=== PATIENT | female | born 1945 | race Caucasian/White ===

== ENCOUNTER 2017-12-18 18:39 | Emergency (ER) | payer MEDICARE, OTHER ==
[2017-12-18 19:03] VITALS: BP 178/88
--- NOTE | 2017-12-18 19:16 | ED ---
Laceration/Wound HPI - HPI Summary HPI Summary: 72 yr old female with the complaint of head injury. She fell on some wet leaves against the car tire. no LOC. No neck pain. She is not on blood thinners. She has no headache, no focal deficits. She came in due to her scalp wound bleeding on left parietal scalp area. - History of Current Complaint Stated Complaint: S/P FALL HEAD INJURY Time Seen by Provider: 12/18/17 19:03 Hx Last Menstrual Period: age 52 Pain Intensity: 7 - Allergy/Home Medications Allergies/Adverse Reactions: Allergies Allergy/AdvReac Type Severity Reaction Status Date / Time No Known Allergies Allergy Verified 02/17/16 13:42 PMH/Surg Hx/FS Hx/Imm Hx Endocrine/Hematology History: Reports: Hx Thyroid Disease Denies: Hx Diabetes Cardiovascular History: Reports: Hx Hypertension Denies: Hx Pacemaker/ICD Respiratory History: Denies: Other Respiratory Problems/Disorders Sensory History: Denies: Hx Hearing Aid Psychiatric History: Denies: Hx Panic Disorder - Cancer History Cancer Type, 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 - Surgical History Surgery Procedure, Year, and Place: gastric bypass, bowel resection, b/l knee replacements, tubal ligation, t/a Infectious Disease History: Yes Infectious Disease History: Reports: Hx Shingles Denies: Traveled Outside the [place] in Last 30 Days - Family History Known Family History: Positive: None, Hypertension - Social History Occupation: Retired Lives: With Family Alcohol Use: Daily Alcohol Amount: few wine Substance Use Type: Reports: None Smoking Status (MU): Former Smoker Review of Systems Constitutional: Negative Eyes: Negative ENT: Negative Positive: Other - scalp laceration Neurological: Negative All Other Systems Reviewed And Are Negative: Yes Physical Exam Triage Information Reviewed: Yes Vital Signs On Initial Exam: Initial Vitals Temp Pulse Resp BP Pulse Ox 97.8 F 87 18 178/88 100 12/18/17 18:58 12/18/17 18:58 12/18/17 18:58 12/18/17 18:58 12/18/17 18:58 Vital Signs Reviewed: Yes Appearance: Positive: Well-Appearing, No Pain Distress Skin: Positive: Warm, Skin Color Reflects Adequate Perfusion Head/Face: Positive: Other - scalp laceration left parietal scalp with no active bleeding. 3 cm. Eyes: Positive: EOMI ENT: Positive: Normal ENT inspection, TMs normal Neck: Positive: Supple, Nontender Respiratory/Lung Sounds: Positive: Clear to Auscultation, Breath Sounds Present Cardiovascular: Positive: RRR Abdomen Description: Negative: Distended Musculoskeletal: Positive: Strength/ROM Intact Neurological: Positive: Sensory/Motor Intact, Alert, Oriented to Person Place, Time, CN Intact II-III, Normal Gait, Speech Normal Psychiatric: Positive: Normal - [place] Coma Scale Best Eye Response: 4 - Spontaneous Best Motor Response: 6 - Obeys Commands Best Verbal Response: 5 - Oriented Coma Scale Total: 15 Procedures - Laceration/Wound Repair 1 Location: head Description: Irregular Length, Depth and Shape: 3 cm Betadine Prep?: No Irrigated w/ Saline (ccs): 500 Laceration/Wound Explored: clean Closure: [place] #__ - 4 Layer Closure?: No Sterile Dressing Applied?: No Diagnostics - Vital Signs Vital Signs Temp Pulse Resp BP Pulse Ox 12/18/17 18:58 97.8 F 87 18 178/88 100 - Laboratory Lab Statement: Any lab studies that have been ordered have been reviewed, and results considered in the medical decision making process. Laceration Repair Course/Dx - Course Course Of Treatment: 72 yr old no LOC, scalp lac repaired. Normal neuro. DC home. Gridley out in 10 days. - Clinical Impression Provider Diagnoses: Scalp laceration Discharge - Sign-Out/Discharge Documenting (check all that apply): Patient Departure All imaging exams completed and their final reports reviewed: No Studies - Discharge Plan Condition: Good Disposition: HOME Patient Education Materials: Laceration (ED), Hypertension (ED) Referrals: No Primary Care Phys,NOPCP [Primary Care Provider] - [facility] REFERRAL [Outside] Additional Instructions: you miguelito need to be removed in 10 days. - Billing Disposition and Condition Condition: GOOD Disposition: Home
[2017-12-18] MEDS ORDERED: Tetan/Diph/Pertus SYR(Tdap)* 0.5 ML SYR(BOOSTRIX) use SYR IM ONE (19:28)
== END 2017-12-18 20:01 | disposition home or self-care (01) ==
LOC: UCCORT 18:39
DX: I10 Essential (primary) hypertension (principal); Z85.828 Personal history of other malignant neoplasm of skin; S01.01XA Laceration without foreign body of scalp, initial encounter; W01.198A Fall on same level from slipping, tripping and stumbling with subsequent striking against other object, initial encounter; Y92.9 Unspecified place or not applicable
CPT/HCPCS: 12002; 90715; 99211; G0463

== ENCOUNTER 2017-12-28 11:55 | Emergency (ER) | payer MEDICARE, OTHER ==
--- NOTE | 2017-12-28 13:26 | UC ---
Skin Complaint HPI - HPI Summary HPI Summary: 72 yo female presents for staple removal. She had 5 miguelito placed 10 days ago s /p head injury. She has been feeling well since that time. Reports that the site itches, but has not hurt, had any drainage or swelling. - History of Current Complaint Time Seen by Provider: 12/28/17 13:26 Stated Complaint: STAPLE REMOVED Hx Obtained From: Patient Hx Last Menstrual Period: age 52 - Allergy/Home Medications Allergies/Adverse Reactions: Allergies Allergy/AdvReac Type Severity Reaction Status Date / Time No Known Allergies Allergy Verified 12/28/17 13:32 Review of Systems Constitutional: Negative Skin: Other - 5 miguelito in scalp Respiratory: Negative Cardiovascular: Negative Gastrointestinal: Negative Neurological: Negative Psychological: Negative All Other Systems Reviewed And Are Negative: Yes PMH/Surg Hx/FS Hx/Imm Hx Endocrine History: Hypothyroidism Cardiovascular History: Hypertension GI/ History: Gastroesophageal Reflux - Surgical History Surgical History: Yes Surgery Procedure, Year, and Place: gastric bypass, bowel resection, b/l knee replacements, tubal ligation, t/a - Family History Known Family History: Positive: Hypertension - Social History Occupation: Retired Lives: With Family Alcohol Use: Daily Alcohol Amount: few wine Substance Use Type: None Smoking Status (MU): Former Smoker When Did the Patient Quit Smoking/Using Tobacco: 40+ years ago - Immunization History Most Recent Tetanus Shot: about 2009 Physical Exam - Summary Physical Exam Summary: GENERAL: NAD. WDWN. No pain distress. SKIN: [address] left scalp. Laceration well healed with copious scabbing. No drainage, erythema, or edema. NECK: Supple. Nontender. No lymphadenopathy. CHEST: No accessory muscle use. Breathing comfortably and in no distress. CV: Pulses intact. Cap refill <2seconds NEURO: Alert. PSYCH: Age appropriate behavior. Triage Information Reviewed: Yes Vital Signs: Vital Signs: Temp Pulse Resp BP Pulse Ox 98.6 F 84 16 144/73 100 12/28/17 13:27 12/28/17 13:27 12/28/17 13:27 12/28/17 13:27 12/28/17 13:27 Course/Dx - Course Course Of Treatment: 4 miguelito removed with ease. 5th and last staple was difficult to remove. I enlisted the help of Dr. Mendes and, using a curved hemostat and staple remover, was able to remove the final staple. Pt tolerated well. - Diagnoses Provider Diagnoses: Staple removal Discharge - Sign-Out/Discharge Documenting (check all that apply): Patient Departure All imaging exams completed and their final reports reviewed: No Studies - Discharge Plan Condition: Stable Disposition: HOME Referrals: Piter Felix DO [Primary Care Provider] - Additional Instructions: If you develop a fever, shortness of breath, chest pain, new or worsening symptoms - please call your PCP or go to the ED. - Billing Disposition and Condition Condition: STABLE Disposition: Home
[2017-12-28 13:32] VITALS: BP 144/73
== END 2017-12-28 14:02 | disposition home or self-care (01) ==
LOC: UCCORT 11:55
DX: Z48.02 Encounter for removal of sutures (principal); E03.9 Hypothyroidism, unspecified; I10 Essential (primary) hypertension; K21.9 Gastro-esophageal reflux disease without esophagitis; Z90.49 Acquired absence of other specified parts of digestive tract; Z98.84 Bariatric surgery status; Z87.891 Personal history of nicotine dependence; Z96.653 Presence of artificial knee joint, bilateral

== ENCOUNTER 2018-05-08 13:18 | Emergency (ER) | payer MEDICARE, OTHER ==
[2018-05-08 13:36] VITALS: BP 111/53
--- NOTE | 2018-05-08 13:49 | UC ---
Lower Extremity/Ankle HPI - HPI Summary HPI Summary: bilateral lower leg swelling / redness x 3 days swelling from toes to knees painful to walk, no known injury , no hx of DM denies any fever, no chest pain , no sob - History of Current Complaint Chief Complaint: UCLowerExtremity Stated Complaint: SWELLING, SKIN CONCERN & PAIN BOTH FEET AND LEGS Time Seen by Provider: 05/08/18 13:28 Hx Obtained From: Patient Hx Last Menstrual Period: age 52 Onset/Duration: Gradual Onset, Lasting Days - 3, Still Present Severity Initially: Moderate Severity Currently: Severe Pain Intensity: 7 Aggravating Factor(s): Standing, Ambulation Alleviating Factor(s): Elevation Able to Bear Weight: Yes - Allergies/Home Medications Allergies/Adverse Reactions: Allergies Allergy/AdvReac Type Severity Reaction Status Date / Time No Known Allergies Allergy Verified 05/08/18 13:36 Home Medications: Home Medications Torsemide TAB* [Demadex*] 20 mg PO DAILY 05/08/18 [History Confirmed 05/08/18] PMH/Surg Hx/FS Hx/Imm Hx Endocrine History: Thyroid Disease Cardiovascular History: Cardiac Disease, Hypertension - Surgical History Surgical History: Yes Surgery Procedure, Year, and Place: gastric bypass, bowel resection, b/l knee replacements, tubal ligation, t/a - Family History Known Family History: Positive: None, Hypertension - Social History Alcohol Use: Daily Alcohol Amount: few wine Substance Use Type: None Smoking Status (MU): Former Smoker When Did the Patient Quit Smoking/Using Tobacco: 40+ years ago - Immunization History Most Recent Tetanus Shot: about 2009 Review of Systems All Other Systems Reviewed And Are Negative: Yes Constitutional: Positive: Negative Skin: Positive: Negative Eyes: Positive: Negative ENT: Positive: Negative Gastrointestinal: Positive: Negative Musculoskeletal: Positive: Edema Is Patient Immunocompromised?: No Physical Exam Triage Information Reviewed: Yes Appearance: Ill-Appearing, Pain Distress, Obese Vital Signs: Initial Vital Signs Temp 98.2 F 05/08/18 13:31 Pulse 87 05/08/18 13:31 Resp 16 05/08/18 13:31 BP 111/53 05/08/18 13:31 Pulse Ox 100 05/08/18 13:31 Vital Signs Reviewed: Yes Eye Exam: Normal Eyes: Positive: Conjunctiva Clear ENT: Positive: Normal ENT inspection, Hearing grossly normal, Pharynx normal Neck: Positive: Supple, Nontender, No Lymphadenopathy Respiratory: Positive: Chest non-tender, Lungs clear, Normal breath sounds Cardiovascular: Positive: RRR, No Murmur, Pulses Normal Musculoskeletal: Positive: Edema @ - severe bilateral lower ext edema, erythema , tendernss Lower Extremity Course/Dx - Differential Dx/Diagnosis Provider Diagnosis: Lower extremity edema, Cellulitis of lower leg Discharge - Sign-Out/Discharge Documenting (check all that apply): Patient Departure All imaging exams completed and their final reports reviewed: No Studies - Discharge Plan Condition: Stable Disposition: HOME Patient Education Materials: Cellulitis (DC), Leg Edema (ED) Referrals: Piter Felix DO [Primary Care Provider] - Additional Instructions: please go [facility] ED for evaluation and tx - Billing Disposition and Condition Condition: STABLE Disposition: Home
== END 2018-05-08 13:50 | disposition home or self-care (01) ==
LOC: UCCORT 13:18
DX: L03.116 Cellulitis of left lower limb (principal); L03.115 Cellulitis of right lower limb; R60.0 Localized edema; I10 Essential (primary) hypertension; E66.9 Obesity, unspecified; Z87.891 Personal history of nicotine dependence
CPT/HCPCS: 99212; G0463